=== PATIENT | female | born 1960 | race Two or more races ===

== ENCOUNTER 2020-02-27 18:02 | Emergency (ER) | payer OTHER ==
[~2020-02-27] VITALS: Ht 160 cm; Wt 59.0 kg
[2020-02-27] MEDS ORDERED: cloNIDine HCL 0.1 MG TAB PO ONE (18:45)
[2020-02-27 19:08] VITALS: BP 150/93
== END 2020-02-27 19:35 | disposition home or self-care (01) ==
LOC: ER 18:02
DX: S09.8XXA Other specified injuries of head, initial encounter (principal); I16.0 Hypertensive urgency; D35.4 Benign neoplasm of pineal gland; I10 Essential (primary) hypertension; X58.XXXA Exposure to other specified factors, initial encounter; Y93.89 Activity, other specified; Y92.89 Other specified places as the place of occurrence of the external cause; Y99.8 Other external cause status
CPT/HCPCS: 70450; 93005